=== PATIENT | female | born 1970 | race Caucasian/White ===

== ENCOUNTER → 2020-08-03 | Day surgery (SDC) | payer OTHER ==
[~2020-08-03] MED LIST: DAILY VALUE1 EAC1 PO; LISINOPRIL10 MG PO; METFORMIN HCL500 M3 PO; NORCO5 PO; ROSUVASTATIN CA20 MG PO
--- NOTE | ~2020-08-03 | OP ---
[facility] [address] [place] [address] OPERATIVE REPORT Name: RAFA MORELOS Room: [facility]#: [id number] Admission: 08/03/20 Attend Phys: Dwayne Pettit Discharge: Date of : 68 Report #: [id number] THIS REPORT FOR: cc: Haydee Crawley Anna S. DO Patterson, Jonathan D. MD ~ DOC #: [id number] Dwayne Pettit MD DATE OF SURGERY: 08/03/2020 PREOPERATIVE DIAGNOSIS: Symptomatic cholelithiasis. POSTOPERATIVE DIAGNOSIS: Symptomatic cholelithiasis. OPERATION: Laparoscopic cholecystectomy with intraoperative cholangiogram. SURGEON: Dwayne Pettit MD ANESTHESIA: General. ESTIMATED BLOOD LOSS: 30 mL. SPECIMENS: Gallbladder. DESCRIPTION OF PROCEDURE: After informed consent was obtained, the patient was brought to the operating room and placed supine. SCDs were placed and working. Preoperative antibiotics were administered. General anesthesia was induced. The abdomen was prepped and draped in the usual sterile fashion. A 10 mm incision was made above the umbilicus. Fascia was incised and a trocar was placed. Pneumoperitoneum was established. Three right upper quadrant 5 mm ports were placed. Gallbladder was grasped at the fundus and retracted cephalad. Infundibulum was grasped and retracted laterally. I dissected out the cystic duct and cystic artery. The cystic duct was clipped. A ductotomy was made. A cholangiogram catheter was inserted. Cholangiogram was performed. This demonstrated filling of the cystic duct, common bile duct, common hepatic duct, bifurcation of the hepatics, smooth easy flow into the duodenum without any filling defects. This was normal. The cystic duct was clipped and ligated leaving 2 clips on the remaining duct and one on the remaining artery. Gallbladder was then taken off the liver bed with electrocautery. It was placed into an Endopouch and removed. The fascia was then closed with a [id number] 0 Vicryl. Skin was closed with 4-0 Monocryl. Incisions were sealed with Steri-Strips. COMPLICATIONS: [place] [address] OPERATIVE REPORT Name: RAFA MORELOS Room: [facility]#: [id number] Admission: 08/03/20 Attend Phys: Dwayne Pettit Discharge: Date of : 68 Report #: [id number] DISPOSITION: The patient was taken to recovery in satisfactory condition. MD JOCELINE Estes/DELMIS By: [id number] Pettit MD /nt
[2020-08-03 10:20] LABS: CALCIUM 9.9 mg/dL (8.5-10.1); CREATININE 0.6 mg/dL (0.6-1.3)
[2020-08-03 10:25] LABS: TOTAL BILIRUBIN 0.8 mg/dL (<0.1-1.0); TOTAL PROTEIN 7.4 g/dL (6.4-8.2)
--- NOTE | 2020-08-06 10:34 | EKG ---
[place] [address] ELECTROCARDIOGRAM REPORT Name: MORELOSRAFA Room: [facility]#: [id number] Admission: 08/03/20 Attend Phys: Dwayne Champagne Discharge: Date of : 68 Date of Service: 08/03/20957 Report #: [id number] THIS REPORT FOR: //name// [facility] Test Date: 2020-08-03 Test Time: 09:58:34 Pat Name: RAFA MORELOS Department: Room: Gender: F Quality Assurance Manager: KASANDRA : 1970 Requested By: Dwayne Pettit Order Number: [id number] Reanna MD: Heron Boothe Measurements Intervals Kiefer Rate: 75 P: 37 GA: 191 QRS: 25 QRSD: 94 T: 32 QT: 365 QTc: 408 Interpretive Statements Sinus rhythm No previous ECG available for comparison Electronically Signed On 08-06-2020 10:34:33 CDT by Heron Boothe [email or web address] <ELECTRONICALLY SIGNED> By: Heron Boothe MD, [facility] 08/06/20 1034 7 Heron Boothe MD, FAC /EPI
--- NOTE | 2020-08-06 17:06 | PATH ---
[facility] [address] [place] [address] PATHOLOGY RPT PROCEDURE Name: RAFA MORELOS [id number] Admission: 08/03/20 Date of : 68 Discharge: Report #: [id number] Path Case #: [id number] [facility] Accession Number: [id number] . 01 Material submitted: . gallbladder - GALLBLADDER . 01 Clinical history: . DS/LAPAROSCPIC CHOLECYSTECTOMY CALCULUS OF GALLBLADDER POST OP SAME PRE OP . 02 Diagnosis: Gallbladder: - Chronic cholecystitis and cholelithiasis. (RILEY:pit 08/06/2020) QTP 08/06/2020 1316 Local . 02 Electronically signed: . Saul Jennings MD, Pathologist NPI- [id number] . 01 Gross description: . Fixative: Formalin Labeled: Gallbladder Specimen received: Intact gallbladder Dimensions: 9.5 x 3.5 x 3.4 cm Serosa: [place] Lymph node: Not identified Mucosa: Velvety, light hill Average wall thickness: 0.1 cm Calculi: Present displaying a yellow-brown and multifaceted appearance Abnormalities: None identified . Reservations Sales Supervisor body, fundus, and the cystic duct margin in cassette A1. (CAA; 08/05/2020) QA/[facility] 08/05/2020 1544 Local . 02 Pathologist provided ICD-10: K80.10 . 02 CPT . 503235 Specimen Comment: A courtesy copy of this report has been sent to [phone] Specimen Comment: [phone] Specimen Comment: Report sent to / DR KOCH Performed at: [address] [address] PATHOLOGY RPT PROCEDURE Name: RAFA MORELOS Room: [facility]#: [id number] Admission: 08/03/20 Date of : 68 Discharge: Report #: [id number] Path Case #: [id number] [address], [place], [place] [id number] MD Ye Jacome MD Phone: [phone] Performed at: [address] [id number] MD Saul Jennings MD Phone: [phone]
== END | disposition home or self-care (01) ==
LOC: M.SUR 09:24
PROVIDERS: ATTEND Surgery
DX: K80.10 Calculus of gallbladder with chronic cholecystitis without obstruction (principal); R10.11 Right upper quadrant pain; E11.9 Type 2 diabetes mellitus without complications; Z98.890 Other specified postprocedural states; Z79.899 Other long term (current) drug therapy